=== PATIENT | male | born 1950 | race Caucasian/White ===

== ENCOUNTER 2017-03-07 03:34 | Emergency (ER) | payer BC, MEDICARE ==
[2017-03-07] MEDS ORDERED: Cyclobenzaprine TAB* 10 MG PO ONE (04:06)
[2017-03-07] MEDS ORDERED: Ketorolac INJ* 60 MG/2 ML VIAL IM ONE (04:06)
--- NOTE | 2017-03-07 04:47 | ED ---
I, Oh,Radha, scribed for Tim Bazzi MD on 03/07/17 at 0412 . Back Pain - HPI Summary HPI Summary: This 67 y/o male presents to ED with acute on chronic 08/25 [id number] right lower back pain that radiates down to RLE leg. Pt attempted to control pain with APAP, Backaide pills, Icy Hot patch, and chiropractor's treatment yesterday without much relief, and decided to visit ED this morning to control pain. PMHx includes CAD, ME in 2015 s/p stent placement, GERD, and hernia s/p repair. Allergies information involving plavix is reviewed and confirmed with pt. - History of Current Complaint Chief Complaint: EDBackInjuryPain Stated Complaint: BACK PAIN Time Seen by Provider: 03/07/17 04:02 Hx Obtained From: Patient, Medical Records Onset/Duration: Lasting Days, Still Present Onset/Duration: Atraumatic Timing: Constant Back Pain Location: Is Discrete @ - right lower back pain, Radiates To - RLE leg Pain Intensity: 11 Pain Scale Used: 0-10 Numeric Aggravating Symptom(s): Movement Alleviating Symptom(s): Nothing Associated Signs And Symptoms: Positive: Negative - Allergies/Home Medications Allergies/Adverse Reactions: Allergies Allergy/AdvReac Type Severity Reaction Status Date / Time Clopidogrel [From Plavix] Allergy Itching Verified 03/07/17 03:39 PMH/Surg Hx/FS Hx/Imm Hx Cardiovascular History: Reports: Hx Coronary Artery Disease, Hx Myocardial Infarction GI History: Reports: Other GI Disorders - heartburn - Surgical History Surgery Procedure, Year, and Place: 11/17/14 left umbillical hernia repair Hx Anesthesia Reactions: No Infectious Disease History: No Infectious Disease History: Denies: Traveled Outside the [place] in Last 30 Days - Family History Known Family History: Negative: Other - negativ malignant hyperthermia or adverse anesthesia reaction - Social History Alcohol Use: Occasionally Hx Substance Use: No Substance Use Type: Reports: None Hx Tobacco Use: Yes Smoking Status (MU): Former Smoker Type: Cigarettes Amount Used/How Often: 1ppd many years /30 + YRS, now smokes 1/4ppd Have You Smoked in the Last Year: Yes Review of Systems Negative: Fever Positive: Other - right lower back pain radiating down to RLE leg All Other Systems Reviewed And Are Negative: Yes Physical Exam Triage Information Reviewed: Yes Vital Signs On Initial Exam: Initial Vitals Temp Pulse Resp BP Pulse Ox 98.5 F 85 18 122/74 97 03/07/17 03:36 03/07/17 03:36 03/07/17 03:36 03/07/17 03:36 03/07/17 03:36 Vital Signs Reviewed: Yes Appearance: Positive: Well-Appearing, Pain Distress - mild discomfort Skin: Positive: Warm Eyes: Positive: OMAR ENT: Positive: Hearing grossly normal Neck: Positive: Supple Respiratory/Lung Sounds: Positive: Breath Sounds Present Cardiovascular: Positive: RRR Abdomen Description: Positive: Nontender, Soft Musculoskeletal: Positive: Other - rt paralumbar spasm, mild pain rt slr at 60 egrees Neurological: Positive: Sensory/Motor Intact, Reflexes Intact, Normal Gait Psychiatric: Positive: Affect/Mood Appropriate Diagnostics - Vital Signs Vital Signs Temp Pulse Resp BP Pulse Ox 03/07/17 03:52 78 149/88 98 03/07/17 03:36 98.5 F 85 18 122/74 97 - Laboratory Lab Statement: Any lab studies that have been ordered have been reviewed, and results considered in the medical decision making process. - Radiology L-Spine Xray Interpretation: Positive (See Comments) - moderate DJD Radiology Interpretation Completed By: ED Physician SP Lumbar Radiology Interpretation Completed By: ED Physician Re-Evaluation - Re-Evaluation First Eval Re-Evaluation Time: 06:06 Change: Improved Comment: MD in room to update pt on imaging results. Back Pain Course/Dx - Diagnoses Provider Diagnoses: Back pain Discharge - Discharge Plan Condition: Improved Disposition: HOME Prescriptions: Cyclobenzaprine TAB* [Flexeril 10 MG TAB*] 10 mg PO TID #30 tab Ibuprofen TAB* [Motrin TAB* 800 MG] 800 mg PO TID #30 tab Patient Education Materials: Ibuprofen (By mouth), Cyclobenzaprine (By mouth), Back Pain (ED) Referrals: Horacio Johnson MD [Primary Care Provider] - 2 Days The documentation as recorded by the [employer] accurately reflects the service I personally performed and the decisions made by me, Tim Bazzi MD.
[2017-03-07 06:13] VITALS: BP 146/83
--- NOTE | 2017-03-07 07:45 | RAD ---
Indication: Back pain. 5 views of the lumbar spine demonstrates vertebral bodies to be normal in height. Disc space narrowing at L2-L3, L3-L4 and L4-L5 with dorsal and ventral osteophyte formation is noted. No fracture is identified. IMPRESSION: Multilevel degenerative disc disease is present.
== END 2017-03-07 06:11 | disposition home or self-care (01) ==
LOC: ED 03:34
DX: M54.9 Dorsalgia, unspecified (principal); M54.5 Low back pain; Z87.891 Personal history of nicotine dependence
CPT/HCPCS: 72110; 99282; A9270-GY; J1885

== ENCOUNTER 2017-03-15 08:47 | Emergency (ER) | payer BC, MEDICARE ==
[2017-03-15 08:52] VITALS: BP 127/73
== END 2017-03-15 10:43 | disposition left against medical advice (07) ==
LOC: ED 08:47
DX: M54.9 Dorsalgia, unspecified (principal); Z53.21 Procedure and treatment not carried out due to patient leaving prior to being seen by health care provider
CPT/HCPCS: 99281

== ENCOUNTER 2017-03-15 12:06 | Emergency (ER) | payer BC, MEDICARE ==
[2017-03-15 15:45] VITALS: BP 137/79
--- NOTE | 2017-03-15 15:51 | UC ---
Jhon Heard Alok, scribed for Xochitl Floyd MD on 03/15/17 at 1505 . Back Pain HPI - HPI Summary HPI Summary: 67M presents to [facility] with lower back pain, that radiates to and causes right hip pain, right knee pain, right ankle pain, and right great toe pain for the past 10 days. Pt states that his toe pain feels like a sharpness and is accompanied by twitching and the sensation in his right toe does not feel the same as the left. Pt states his pain is worsened by standing. He states he also has occasional twitching of his arms and upper body. Pt was given toradol at [facility] in an earlier visit on 03/06/17 with no relief. He also had plain xrays that showed DJD and was started on ibuprofen and cyclobenzaprine without relief. He states he can't take ibuprofen because he has had an SC and he takes effient (a new anticoagulant, similar to plavix, but plavix gave him itching). Pt has tried taking oxycodone with no relief. Pt has been seeing a chiropractor every day for the past 5 days. Pt denies direct trauma or fall. No incontinence. PMHx includes STEMI and cannot take ibuprofen. PSHx includes hernia surgery. Pt takes anticoagulants. Pt also takes lisinpril 5 mg 1 at night, effient 10 mg 1 at day, atorvastatin 20 mg once a day. Pt was prescribed 800 mg ibuprofen 1-3 a day and Cyclobenzaprine 10 mg 1-[address] Bazzi at [facility] on 03/06/17. Pt left AMA from the ED earlier today. - History of Current Complaint Chief Complaint: UCBackPain Stated Complaint: BACK PAIN Time Seen by Provider: 03/15/17 14:46 Hx Obtained From: Patient Onset/Duration: Lasting Days, Still Present Timing: Constant Severity Initially: Moderate Severity Currently: Moderate Pain Intensity: 10 Pain Scale Used: 0-10 Numeric Back Pain: Is Discrete @ - lower back, Radiates To - right hip, knee, ankle, toe Character: Sharp Aggravating: Walking Alleviating: Nothing Associated Signs And Symptoms: Positive: Numbness - right great toe, Pain with Weight Bearing. Negative: Weakness Related History: Similar Episode Dx As - sciatica - Allergies/Home Medications Allergies/Adverse Reactions: Allergies Allergy/AdvReac Type Severity Reaction Status Date / Time Clopidogrel [From Plavix] Allergy Itching Verified 03/07/17 03:39 NSAIDs Allergy See Comment Verified 03/15/17 13:00 Home Medications: Home Medications Atorvastatin* [Lipitor 20 MG*] 20 mg PO DAILY 03/15/17 [History Confirmed ] Lisinopril [Zestril 5 MG-] 5 mg PO DAILY 03/15/17 [History Confirmed 03/15/17] Prasugrel HCl [Effient] 10 mg PO DAILY 03/15/17 [History Confirmed 03/15/17] PMH/Surg Hx/FS Hx/Imm Hx Previously Healthy: No Cardiovascular History: Cardiac Disease - STEMI - Surgical History Surgical History: Yes Surgery Procedure, Year, and Place: 11/17/14 left umbillical hernia repair - Family History Known Family History: Positive: Other - No- Malignant hypothermia - Social History Occupation: Employed Full-time - electromechanical equipment assembler Lives: With Family Alcohol Use: Rare Substance Use Type: None Smoking Status (MU): Former Smoker Type: Cigarettes Amount Used/How Often: 1ppd many years /30 + YRS, now smokes 1/4ppd Have You Smoked in the Last Year: Yes Household Exposure Type: Cigarettes - Immunization History Most Recent Influenza Vaccination: never Most Recent Tetanus Shot: unknown Most Recent Pneumonia Vaccination: never Review of Systems Constitutional: Negative Musculoskeletal: Arthralgia, Other: - back pain, hip pain, knee pain, ankle pain , toe pain. Twiching. Neurological: Other - twitching All Other Systems Reviewed And Are Negative: Yes Physical Exam Triage Information Reviewed: Yes Appearance: Well-Appearing, Well-Nourished, Pain Distress Vital Signs: Initial Vital Signs Temp 99.0 F 03/15/17 13:00 Pulse 88 03/15/17 13:00 Resp 18 03/15/17 13:00 BP 151/75 03/15/17 13:00 Pulse Ox 100 03/15/17 13:00 Vital Signs Reviewed: Yes Eyes: Positive: Conjunctiva Clear ENT Exam: Normal Neck: Positive: Supple Respiratory: Positive: Lungs clear, Normal breath sounds, No respiratory distress Cardiovascular: Positive: RRR, No Murmur, Pulses Normal, Brisk Capillary Refill Abdomen Description: Positive: Nontender, No Organomegaly, Soft Bowel Sounds: Positive: Present Musculoskeletal: Positive: Other: - Tender lumbar spines Tender sciatic notch. Able to walk on heels and toes. Knee reflexes 2+ symmetric. Ankle reflexes 1+ symmetric. Sensation intact. A and O x 3, Motor 5/5. Neurological: Positive: Alert, Muscle Tone Normal Psychological Exam: Normal Skin Exam: Normal Back Pain Course/Dx - Course Course Of Treatment: Pt medications reviewed at visit. High blood pressure noted. I-STOP consulted. No search items. Pt presented with back, hip, knee, ankle, and toe pain. Pt will discharged with a referral to Dr. Ng for sciatica with right radiculopathy, and steroids, muscle relaxant and narcotic for pain. - Differential Dx/Diagnosis Differential Diagnosis/HQI/PQRI: Cauda Equina Syndrome, Herniated Disc, Strain, Sprain, Other Provider Diagnoses: Sciatica. elevated BP without diagnosis of HTN Discharge - Discharge Plan Condition: Stable Disposition: HOME Prescriptions: Carisoprodol TAB* [Soma TAB*] 350 mg PO Q6H PRN #20 tab MDD 4 PRN Reason: Pain HYDROcodone/ACETAMIN 5-325 MG* [[place] 5-325 TAB*] 1 tab PO Q4H PRN #18 tab MDD 6 PRN Reason: Pain Methylprednisolone [Medrol Dosepak 4 MG*] 4 mg PO .SEE JIMMIE INSTRUCTION #1 jimmie Patient Education Materials: Sciatica (ED) Forms: *Work Release Referrals: Horacio Johnson MD [Primary Care Provider] - (1 day regarding your blood pressure which was elevated today, likely due to your pain, and your back pain ) Mac Ng MD [Medical Doctor] - As Soon As Possible Additional Instructions: Please follow up with Dr. Ng , the neurosurgeon. Also keep your appointment with Dr. Johnson so he can direct your care. We are starting a medrol dose jimmie (steroids) to try to decrease swelling of the disc that we think is pushing on your sciatic nerve. We are also prescribing a very strong muscle relaxant called Soma (carispodol), so do not take the cyclobenzaprine any more. And you may try a narcotic hydrocodone with acetaminophen. Do not take oxycodone with this medication. But you may take all three of my prescribed medications together as directed. You may continue to see your chiropracter. Try to take scheduled pain medication, so that you stay "ahead of the pain". You may continue to use the over the counter muscle rubs also. Return to urgent care if you have new or worsening symptoms, including, but not limited to acute foot weakness. The documentation as recorded by the [employer] price Alok accurately reflects the service I personally performed and the decisions made by me, Xochitl Floyd MD.
== END 2017-03-15 15:44 | disposition home or self-care (01) ==
LOC: UCEAST 12:06
DX: M54.30 Sciatica, unspecified side (principal); R03.0 Elevated blood-pressure reading, without diagnosis of hypertension; I25.2 Old myocardial infarction; Z79.01 Long term (current) use of anticoagulants; Z87.891 Personal history of nicotine dependence
CPT/HCPCS: 99212; G0463